=== PATIENT | female | born 1945 | race Caucasian/White ===

== ENCOUNTER 2022-03-16 13:47 | Emergency (ER) | payer OTHER ==
[~2022-03-16] VITALS: Ht 167.6 cm; Wt 93.0 kg
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
--- NOTE | 2022-03-16 14:17 | NUR ---
PT SWABBED FOR COVID. SENT TO LAB.
[2022-03-16 14:41] LABS: BASOPHILS % (AUTO) 0.4 % (0.0-2.0); HEMATOCRIT 41 % (33-45); HEMOGLOBIN 13.1 g/dL (11.5-14.8); LYMPHOCYTES # (AUTO) 1.3 K/uL (0.8-4.8); LYMPHOCYTES % (AUTO) 16.5 % (20.0-44.0); MEAN CORPUSCULAR HGB CONC 32 g/dl (31.0-36.0); MEAN CORPUSCULAR VOLUME 101 fL (82-100); MONOCYTES # (AUTO) 0.6 K/uL (0.1-1.30); MONOCYTES % (AUTO) 7.5 % (2.0-12.0); NEUTROPHILS # (AUTO) 5.7 K/uL (1.8-8.9); NEUTROPHILS % (AUTO) 73.6 % (43.0-81.0); PLATELET COUNT (AUTO) 217 K/uL (150-450); RED BLOOD CELL COUNT(AUTO) 4.02 MIL/uL (4.0-5.2); WHITE BLOOD COUNT (AUTO) 7.7 K/uL (4.3-11.0)
[2022-03-16 14:52] LABS: BILIRUBIN,URINE NEGATIVE (NEGATIVE); COLOR,URINE YELLOW (YELLOW); LEUKOCYTE ESTERASE ,URINE SMALL (NEGATIVE); NITRITE, URINE NEGATIVE (NEGATIVE); PROTEIN,URINE NEGATIVE (NEGATIVE); UGLUCOSE NEGATIVE (NEGATIVE); UROBILINOGEN,URINE 0.2 EU/dL (0.2)
[2022-03-16 15:21] LABS: ACETAMINOPHEN 3 ug/ml (10-30); ALANINE AMINOTRANSFERASE 23 U/L (12-78); ALBUMIN 3.2 g/dL (3.4-5.0); ALKALINE PHOSPHATASE 95 U/L (46-116); ASPARTATE AMINOTRANSFERASE 19 U/L (15-37); BILIRUBIN,DIRECT 0.1 mg/dL (0.0-0.2); BILIRUBIN,TOTAL 0.4 mg/dL (0.2-1.0); CALCIUM, SERUM 8.7 mg/dL (8.5-10.1); CARBON DIOXIDE 32 mmol/L (21-32); CHLORIDE 108 mmol/L (98-107); GLUCOSE 173 mg/dL (74-106); POTASSIUM 4.2 mmol/L (3.5-5.1); SODIUM SERUM 142 mmol/L (136-145); TOTAL PROTEIN, SERUM 6.3 g/dL (6.4-8.2); UREA NITROGEN, BLOOD 24 mg/dL (7-18)
[2022-03-16 15:26] LABS: ALCOHOL, BLOOD < 3 mg/dL (0-0)
[2022-03-16 15:43] LABS: CREATININE 0.9 mg/dL (0.6-1.3)
[2022-03-16 16:22] LABS: BACTERIA,URINE 1+ /HPF (None Seen); RBC,URINE 0-2 /HPF (0-2)
--- NOTE | 2022-03-16 20:40 | NUR ---
PROVIDED WITH MEAL TRAY. TOLERATED WELL.
--- NOTE | 2022-03-16 20:40 | NUR ---
DR. KAUFFMAN - PSYCHIATRIST
--- NOTE | 2022-03-16 20:41 | NUR ---
[phone] RIGGINS (DAUGHTER/DPOA)
--- NOTE | 2022-03-16 20:45 | NUR ---
[facility] P[facility]ED.
--- NOTE | 2022-03-16 20:50 | NUR ---
DR MAHONEY ON PHONE WITH [facility]
--- NOTE | 2022-03-16 21:17 | NUR ---
[facility] AND CLIN[facility] FAXED TO [facility] [phone]
--- NOTE | 2022-03-17 04:00 | NUR ---
PT SLEEPING COMFORTABLY. V/S WNL. CALL LIGHT WITHIN REACH.
--- NOTE | 2022-03-17 09:12 | NUR ---
[facility] CALLED BACK. PT GOING TO [facility] ACCEPTED BY DR HUEY WOLF. ROOM 5, # FOR REPORT [phone] TRANSPORT ETA. APPROX 1 HOUR.
--- NOTE | 2022-03-17 09:50 | NUR ---
PT REPORT GIVEN TO NICK BOSTON RN AT [facility]
[2022-03-17 10:50] VITALS: BP 122/63
--- NOTE | 2022-03-17 10:53 | NUR ---
EMT AT BEDSIDE TO PICKUP PT.
--- NOTE | 2022-03-17 11:18 | NUR ---
Patient discharged to [facility] via gurney accompanied by 2 pin game machine inspector. Written and verbal after care instructions given. Patient verbalizes understanding of instruction. Original doc for 4614 endorsed to EMT.
== END 2022-03-17 11:23 ==
LOC: ER 14:03
DX: R45.851 Suicidal ideations (principal); F12.10 Cannabis abuse, uncomplicated; F13.90 Sedative, hypnotic, or anxiolytic use, unspecified, uncomplicated; Z20.822 Contact with and (suspected) exposure to COVID-19; Z88.5 Allergy status to narcotic agent; E78.5 Hyperlipidemia, unspecified; I10 Essential (primary) hypertension; F32.A Depression, unspecified
CPT/HCPCS: 99285; 85025; 80048; 87086; 80076; 81001; 36415; 87426; 80143; 80320; 80307; 93005; C9803; G0480